=== PATIENT | female | born 1995 | race Hispanic/Latino ===

== ENCOUNTER 2017-05-25 17:08 | Emergency (ER) | payer MEDICAID ==
[2017-05-25 17:42] VITALS: BP 127/79; PULSE 84; RESP 18; TEMP 98; O2SAT 98
[2017-05-25 18:38] LABS: BASO % 0.6 % (0.0-2.0); EOS # 0.1 K/uL (0.0-0.7); EOS % 1.1 % (0.0-4.0); HEMOGLOBIN 12.6 g/dL (12.0-16.0); LYMPH # 1.8 K/uL (1.0-4.3); MEAN CELL VOLUME 88.1 fl (81.0-99.0); MEAN CORPUSCULAR HEMOGLOBIN 30.3 pg (27.0-31.0); MEAN CORPUSCULAR HGB CONC 34.4 g/dL (33.0-37.0); MEAN PLATELET VOLUME 7.9 fl (7.2-11.7); MONO # 0.4 K/uL (0.0-0.8); MONO % 5.2 % (0.0-10.0); NEUT % 68.1 % (50.0-75.0); NRBC % 0.1 % (0.0-0.0); RBC 4.16 Mil/uL (3.80-5.20); RED CELL DISTRIBUTION WIDTH 12.5 % (11.5-14.5); WHITE BLOOD COUNT 7.3 K/uL (4.8-10.8)
[2017-05-25] MEDS ORDERED: Dextrose 5%/Lactated Ringer's 1,000 ML IV SCH (18:45)
--- NOTE | 2017-05-25 19:14 | ED PDOC ---
HPI: Female Pain Time Seen by Provider: 05/25/17 17:37 Chief Complaint (Nursing): Female Genitourinary Chief Complaint (Provider): Female Genitourinary History Per: Patient History/Exam Limitations: no limitations Additional Complaint(s): 21 y/o female ( A1) presents to the ED for evaluation of vaginal bleeding and . Reports that her last normal menstrual period was on April 13 and that she has irregular periods. Vaginal spotting was noted for 3 days and today she had an episode of bright red vaginal bleeding. She also has pressure in pelvis and reports nausea started today. Also reports chronic intermittent diarrhea but denies vomiting, light headedness, dysuria, frequency, or any further medical complaints. PMD: Dr. Mendez Past Medical History Reviewed: Historical Data, Nursing Documentation, Vital Signs Vital Signs: Last Vital Signs Temp 98 F 05/25/17 17:38 Pulse 84 05/25/17 17:38 Resp 18 05/25/17 17:38 BP 127/79 05/25/17 17:38 Pulse Ox 98 05/25/17 17:38 - Medical History PMH: Asthma, Gastritis - Surgical History Other surgeries: one elective termination via DNC - Family History Family History: States: Unknown Family Hx - Social History Current smoker - smoking cessation education provided: Yes (Light smoker <10 cigarettes daily) Alcohol: Social Drugs: Denies - Immunization History Hx Tetanus Toxoid Vaccination: No Hx Influenza Vaccination: No Hx Pneumococcal Vaccination: No - Home Medications Home Medications: Ambulatory Orders Medication Instructions Recorded Famotidine [Pepcid] 20 mg PO DAILY #30 tab 02/08/17 Multivit/Folic Acid/I 1 tab PO DAILY #100 tab 05/25/17 [ Plus] - Allergies Allergies/Adverse Reactions: Allergies Allergy/AdvReac Type Severity Reaction Status Date / Time No Known Allergies Allergy Verified 02/08/17 15:55 Review of Systems ROS Statement: Except As Marked, All Systems Reviewed And Found Negative (As per HPIshai negative) Cardiovascular: Negative for: Light Headedness Gastrointestinal: Positive for: Nausea, Diarrhea. Negative for: Vomiting Genitourinary Female: Positive for: Vaginal Bleeding, Pelvic Pain (Pelvic pressure). Negative for: Dysuria, Frequency - Laboratory Results Result Diagrams: 05/25/17 18:05 - ECG O2 Sat by Pulse Oximetry: 98 (RA) Pulse Ox Interpretation: Normal Medical Decision Making Medical Decision Making: Time: 18:05 Initial Impression: vaginal bleeding Differential Diagnosis: Miscarriage UTI, ectopic , demise Plan: Type and screen Beta HCG Urine dipstick Urine Chlamydia/GC RNA, TMA Dextrose 5% 1L IV IV insertion (saline lock) Accession No. : [id number] Patient Name / ID : ROGELIO BOATENG / [id number] Exam Date : 05/25/2017 20:35:14 ( Approved ) Study Comment : Sex / Age : F / 21Y Creator : Stephan Long MD Dictator : Metal [employer] : [employer] Dispatcher : Stephan Long MD Approver2 : Report Date : 05/25/2017 21:41:00 My Comment : [facility] Division of Radiology [address] [place] [address] Tel. no. Patient Name: TASNEEM MERCADO Pt. Address: [address] [place] [address] Rec #: [id number] [place] [address]: Gavin MILLS, Krupa Briggs Pt Order Location: [facility] : 1995 Female Age: 21 Order #: [id number] Reason for exam: vaginal bleed preg Ultrasound OB TRANSVAGINAL Exam Date: 05/25/17 This imaging exam was performed at [facility] EXAM: US , Transvaginal CLINICAL HISTORY: 21 years old, female; Signs and symptoms; Lmp or gestational age (in weeks): 04/13/17; Antepartum complications; Other: Spotting; ; Additional info: Vaginal bleed preg TECHNIQUE: Real-time transvaginal obstetrical ultrasound of the maternal pelvis and a first trimester with image documentation. Transvaginal imaging was used for better evaluation of the fetus and adnexa. COMPARISON: No relevant prior studies available. FINDINGS: Gestation: Single live intrauterine gestation. heart rate of 104 beats per minute. [place]-rump length of 0.2 cm, correlating with gestational age of 5 weeks 5 days. Uterus/cervix: No subchorionic hemorrhage. No cervical dilatation or effacement. Ovaries: RIGHT ovary: Probable 2.1 x 1.8 x 2.2 cm corpus luteal cyst. LEFT ovary: Normal. No adnexal masses. Free fluid: No significant free fluid. IMPRESSION: 1. Single live intrauterine gestation. 2. Incidental/non-acute findings are described above. Dictated By: Stephan Long MD Dictated Date/Time: 05/25/172140 Signed By: Stephan Long MD Date Signed: 2140 Transcribed By: [email or web address] Transcribe Date/Time : 05/25/172140 ACYP02/VRD Scribe Attestation: Documented by Elisa Coello acting as a scribe for Krupa Alonso MD. Scribe Attestation: All medical record entries made by the Scribe were at my direction and personally dictated by me. I have reviewed the chart and agree that the record accurately reflects my personal performance of the history, physical exam, medical decision making, and the department course for this patient. I have also personally directed, reviewed, and agree with the discharge instructions and disposition. Disposition - Clinical Impression Clinical Impression: Threatened Counseled Patient/Family Regarding: Studies Performed, Diagnosis - Disposition Referrals: [facility] [Outside] Disposition: Routine/Home Disposition Time: 22:37 Condition: STABLE Additional Instructions: PLEASE FOLLOW UP WITH [facility] SOON POSSIBLE TO START CARE START VITAMINS AND QUIT SMOKING WELL DRINK PLENTY OF HYDRATING FLUIDS AND REST Prescriptions: Multivit/Folic Acid/I [ Plus] 1 tab PO DAILY #100 tab Instructions: Threatened Miscarriage (ED) Forms: [facility] ED School/Work Excuse
--- NOTE | 2017-05-25 21:42 | US ---
EXAM: US , Transvaginal CLINICAL HISTORY: 21 years old, female; Signs and symptoms; Lmp or gestational age (in weeks): 04/13/17; Antepartum complications; Other: Spotting; ; Additional info: Vaginal bleed preg TECHNIQUE: Real-time transvaginal obstetrical ultrasound of the maternal pelvis and a first trimester with image documentation. Transvaginal imaging was used for better evaluation of the fetus and adnexa. COMPARISON: No relevant prior studies available. FINDINGS: Gestation: Single live intrauterine gestation. heart rate of 104 beats per minute. [place]-rump length of 0.2 cm, correlating with gestational age of 5 weeks 5 days. Uterus/cervix: No subchorionic hemorrhage. No cervical dilatation or effacement. Ovaries: RIGHT ovary: Probable 2.1 x 1.8 x 2.2 cm corpus luteal cyst. LEFT ovary: Normal. No adnexal masses. Free fluid: No significant free fluid. IMPRESSION: 1. Single live intrauterine gestation. 2. Incidental/non-acute findings are described above.
== END 2017-05-25 22:40 | disposition home or self-care (01) ==
LOC: H.ER 17:08
DX: O20.0 Threatened abortion (principal); J45.909 Unspecified asthma, uncomplicated
CPT/HCPCS: 76817; 81025; 84702; 85025; 86850; 86900; 87491; 87591; 99285; J7120